=== PATIENT | female | born 1985 | race African-American/Black ===

== ENCOUNTER 2016-12-12 10:29 | Emergency (ER) | payer MEDICAID, OTHER ==
[~2016-12-12] VITALS: Ht 157.5 cm; Wt 99.8 kg
[2016-12-12 11:11] VITALS: BP 129/86
== END 2016-12-12 11:28 | disposition home or self-care (01) ==
LOC: ER 10:30
DX: J02.9 Acute pharyngitis, unspecified (principal); Z87.442 Personal history of urinary calculi

== ENCOUNTER 2017-06-27 16:00 | Emergency (ER) | payer MEDICAID, OTHER ==
[~2017-06-27] VITALS: Ht 157.5 cm; Wt 116.7 kg
[2017-06-27 16:36] VITALS: BP 135/82
== END 2017-06-27 17:46 | disposition home or self-care (01) ==
LOC: ER 16:00
DX: J02.9 Acute pharyngitis, unspecified (principal); Z88.0 Allergy status to penicillin

== ENCOUNTER 2017-07-19 11:35 | Emergency (ER) | payer MEDICAID, OTHER ==
[~2017-07-19] VITALS: Ht 157.5 cm; Wt 113.4 kg
[2017-07-19 12:17] VITALS: BP 123/75
== END 2017-07-19 13:24 | disposition home or self-care (01) ==
LOC: ER 11:35
DX: K12.2 Cellulitis and abscess of mouth (principal); J02.9 Acute pharyngitis, unspecified; Z88.0 Allergy status to penicillin

== ENCOUNTER 2017-07-25 18:25 | Emergency (ER) | payer MEDICAID, OTHER ==
[~2017-07-25] VITALS: Ht 157.5 cm; Wt 113.4 kg
[2017-07-25] MEDS ORDERED: ACETAMINOPHEN 325 MG TAB PO ONE ×2 (18:32→18:45)
[2017-07-25 19:51] VITALS: BP 145/109
== END 2017-07-25 21:33 | disposition home or self-care (01) ==
LOC: ER 18:25
DX: K52.9 Noninfective gastroenteritis and colitis, unspecified (principal); J40 Bronchitis, not specified as acute or chronic
CPT/HCPCS: 81025

== ENCOUNTER 2017-08-17 00:43 | Emergency (ER) | payer MEDICAID, OTHER ==
[~2017-08-17] VITALS: Ht 157.5 cm; Wt 113.4 kg
[2017-08-17 05:00] VITALS: BP 122/70
== END 2017-08-17 05:47 | disposition home or self-care (01) ==
LOC: ER 00:43
DX: J32.9 Chronic sinusitis, unspecified (principal); F17.210 Nicotine dependence, cigarettes, uncomplicated; F12.10 Cannabis abuse, uncomplicated; Z88.0 Allergy status to penicillin